=== PATIENT | male | born 1985 | race Caucasian/White ===

== ENCOUNTER 2021-11-21 19:33 | Emergency (ER) | payer BC, OTHER ==
[2021-11-21] MEDS ORDERED: Sodium Chloride 0.9% 10 ML Syringe FLUSH PRN (20:07)
[2021-11-21] MEDS ORDERED: Sodium Chloride 0.9% 1,000 ML IV SCH (20:15)
[2021-11-21 21:09] LABS: HEMOGLOBIN A1C 10.9 %
[2021-11-21] MEDS ORDERED: Sodium Chloride 0.9% 1,000 ML IV ONE (21:20)
[2021-11-21] MEDS ORDERED: Insulin Regular, Human 100 Units/ML 3 ML Vial IV ONE (21:46)
== END 2021-11-21 23:21 | disposition home or self-care (01) ==
LOC: JD.ED 19:33
DX: E11.65 Type 2 diabetes mellitus with hyperglycemia (principal); I10 Essential (primary) hypertension; E66.9 Obesity, unspecified; Z68.45 Body mass index [BMI] 70 or greater, adult; Z79.899 Other long term (current) drug therapy
CPT/HCPCS: 36415; 80053; 81001; 82009; 82800; 82947; 83036; 83735; 84100; 85025; 87040; 96360; 99284; J1815; J3490; J7030; 99283

== ENCOUNTER 2024-02-07 12:27 | Inpatient (IN) | payer BC, OTHER ==
[2024-02-07] MEDS: Sodium Chloride 0.9% 10 ML Syringe FLUSH PRN (12:53)
[2024-02-07 13:01] LABS: BASOPHILS ABSOLUTE AUTO 0.1 K/mm3 (0.0-0.2); BASOPHILS PERCENT AUTO 0.3 % (0.0-1.0); EOSINOPHILS ABSOLUTE AUTO 1.4 K/mm3 (0.0-0.4); EOSINOPHILS PERCENT AUTO 5.4 % (0.0-6.0); HEMATOCRIT 51.2 % (42.0-52.0); HEMOGLOBIN 17.7 gm/dl (14.0-18.0); IMMATURE GRAN ABSOLUTE AUTO 0.36 K/mm3 (0.00-0.05); IMMATURE GRAN PERCENT AUTO 1.4 % (0.0-0.4); LYMPHOCYTES ABSOLUTE AUTO 3.3 K/mm3 (1.0-4.8); LYMPHOCYTES PERCENT AUTO 12.6 % (24.0-44.0); MEAN CORPUSCULAR HEMOGLOBIN 28.4 pg (28.0-32.0); MEAN CORPUSCULAR HGB CONC 34.6 g/dl (32.0-36.0); MEAN CORPUSCULAR VOLUME 82.1 fl (83.0-99.0); MEAN PLATELET VOLUME 10.4 fl (9.4-12.4); MONOCYTES ABSOLUTE AUTO 1.9 K/mm3 (0.0-0.8); MONOCYTES PERCENT AUTO 7.1 % (0.0-8.0); NEUTROPHILS ABSOLUTE AUTO 19.1 K/mm3 (1.8-7.7); NEUTROPHILS PERCENT AUTO 73.2 % (41.0-71.0); PLATELET COUNT,PLT 395 K/mm3 (150-400); RED BLOOD CELL COUNT 6.24 M/mm3 (4.52-5.90); WHITE BLOOD CELL COUNT,WBC 26.07 K/mm3 (3.9-11.3)
[2024-02-07] MEDS: Sodium Chloride 0.9% 1,000 ML IV STA ×3 (13:21→18:13)
[2024-02-07 13:23] LABS: A/G RATIO 0.9 (1-2); ANION GAP 18.3 (5-15); BILIRUBIN TOTAL 1.3 mg/dL (0.2-1.0); BUN/CREATININE RATIO 5.6 (14-18); C-REACTIVE PROTEIN 6.93 mg/dL (<0.30); CALCIUM 9.2 mg/dL (8.5-10.1); EST CRCL DRUG DOSING (CG) 15.24 mL/min; POTASSIUM,K 3.3 mEq/L (3.5-5.1); PROTEIN TOTAL,TP 8.5 g/dl (6.4-8.2)
[2024-02-07 13:46] LABS: SLIDE REVIEW ABNORMAL SMEAR
[2024-02-07 15:00] LABS: CORONAVIRUS COVID-19 NAA NEGATIVE (NEGATIVE); INFLUENZA A NAA NEGATIVE (NEGATIVE); RESPIRATORY SYNCYTIAL VIR NAA NEGATIVE (NEGATIVE)
[2024-02-07] MEDS ORDERED: Acetaminophen 325 MG Tab PO PRN (15:08)
[2024-02-07] MEDS ORDERED: Ondansetron 4 MG/2 ML SDV IV PRN (15:08)
[2024-02-07] MEDS: Sodium Chloride 0.9% 1,000 ML IV ONE (16:45)
[2024-02-07] MEDS: Insulin Lispro 100 Unit/ML 3 ML KwikPen SUBCUT SCH (18:12)
[2024-02-07 20:30] LABS: ANION GAP 17.3 (5-15); BUN/CREATININE RATIO 5.1 (14-18); CALCIUM 8.2 mg/dL (8.5-10.1); EST CRCL DRUG DOSING (CG) 13.33 mL/min; POTASSIUM,K 3.3 mEq/L (3.5-5.1)
[2024-02-07] MEDS: Heparin Sodium 5,000 Units/ML Vial SUBCUT SCH (21:22)
[2024-02-07] MEDS: Rosuvastatin 10 MG Tab PO SCH (21:23)
[2024-02-07] MEDS: NS + KCl 20mEq/L 1,000 ML IV SCH (21:47)
[2024-02-07] MEDS: Loperamide 2 MG Cap PO PRN (21:47)
[2024-02-08 04:28] LABS: HEMATOCRIT 43.3 % (42.0-52.0); HEMOGLOBIN 14.9 gm/dl (14.0-18.0); MEAN CORPUSCULAR HEMOGLOBIN 28.2 pg (28.0-32.0); MEAN CORPUSCULAR HGB CONC 34.4 g/dl (32.0-36.0); MEAN CORPUSCULAR VOLUME 81.9 fl (83.0-99.0); MEAN PLATELET VOLUME 10.4 fl (9.4-12.4); PLATELET COUNT,PLT 277 K/mm3 (150-400); RED BLOOD CELL COUNT 5.29 M/mm3 (4.52-5.90); WHITE BLOOD CELL COUNT,WBC 22.98 K/mm3 (3.9-11.3)
[2024-02-08 05:12] LABS: A/G RATIO 0.8 (1-2); ALBUMIN 3.1 g/dl (3.4-5.0); ANION GAP 20.8 (5-15); BILIRUBIN TOTAL 1.2 mg/dL (0.2-1.0); BUN/CREATININE RATIO 5.3 (14-18); C-REACTIVE PROTEIN 7.03 mg/dL (<0.30); CALCIUM 7.6 mg/dL (8.5-10.1); CREATININE 8.9 mg/dL (0.7-1.3); EST CRCL DRUG DOSING (CG) 11.99 mL/min; MAGNESIUM 1.6 mg/dL (1.8-2.4); POTASSIUM,K 2.8 mEq/L (3.5-5.1); PROTEIN TOTAL,TP 6.9 g/dl (6.4-8.2)
[2024-02-08] MEDS: Potassium Chloride 10 MEQ in Premix Bag 1 BAG IV SCH (07:55)
[2024-02-08] MEDS: Furosemide 100 MG/10 ML SDV IVPUSH ONE (08:08)
[2024-02-08] MEDS: Metoprolol Succinate 50 MG Tab.ER PO SCH (08:12)
[2024-02-08] MEDS: Lactated Ringers 1,000 ML IV SCH (08:13)
[2024-02-08 09:10] LABS: APPEARANCE,URINE TURBID (Clear); BILIRUBIN,URINE 2+ (Negative); COLOR,URINE AMBER (Yellow); GLUCOSE,URINE TRACE (Negative); KETONES,URINE TRACE (Negative); LEUKOCYTE ESTERASE,URINE TRACE (Negative); NITRITE,URINE NEGATIVE (Negative); OCCULT BLOOD,URINE 1+ (Negative); PROTEIN,URINE 3+ (Negative)
[2024-02-08 09:20] LABS: AMORPHOUS SEDIMENT,URINE MANY /hpf (NOT SEEN); BACTERIA,URINE MANY /hpf (FEW); MUCUS,URINE MODERATE /hpf (FEW); WBC,URINE 30-40 /hpf (0-5)
[2024-02-08] MEDS: Lactated Ringers 500 ML IV ONE (10:28)
[2024-02-08] MEDS ORDERED: Potassium Chloride 10 MEQ in Premix Bag 1 BAG IV ONE (12:30)
== END 2024-02-08 13:05 | DRG 469 ==
LOC: JD.ED 12:27 → JD.MS 14:24 → JD.ICU 02-08 10:19
PROVIDERS: ADMIT Internal Medicine; ATTEND Internal Medicine
PROC: 3E033XZ Introduction of Vasopressor into Peripheral Vein, Percutaneous Approach (ICD-10-PCS; principal; 2024-02-08)
DX: N17.1 Acute kidney failure with acute cortical necrosis (principal); Z68.44 Body mass index [BMI] 60.0-69.9, adult; I95.9 Hypotension, unspecified; E78.00 Pure hypercholesterolemia, unspecified; I10 Essential (primary) hypertension; G47.30 Sleep apnea, unspecified; R19.7 Diarrhea, unspecified; E66.01 Morbid (severe) obesity due to excess calories; E11.65 Type 2 diabetes mellitus with hyperglycemia; E86.0 Dehydration; Z79.899 Other long term (current) drug therapy
CPT/HCPCS: 0241U; 36415; 51702; 74176; 74176-26; 80048; 80053; 81001; 82947; 83630; 83735; 85025; 85027; 86140; 87045; 87046; 87086; 87177; 87209; 87493; 87899; 94660; 94760; 96360; 99284; 99285-25; A9270-GY; J1644; J1940; J3480; J3490; J7030; J7120